=== PATIENT | female | born 1995 | race Caucasian/White ===

== ENCOUNTER 2016-07-31 18:41 | Observation (INO) | payer OTHER ==
--- NOTE | ~2016-07-31 | CR72 ---
[facility] A Service of [facility] & [facility] RADIOLOGY TEXT RESULTS PATIENT: DIPTI ALVARES LOCATION: C2A 242-01 : [birth year] UNIT #: [id number] AGE: [address]: Chandrakant Kothari MD SEX: F ORDER DR: [id number] [facility] [address] [place], [place] [address] [id number] I MR#: [id number] Acc #: [id number] NAME: DIPTI ALVARES. : 1995 SEX: F STUDY DATE/TIME: 07/31/2016 17:37 UNIT: [facility] ROOM: Critical access hospital STUDY DESCRIPTION: CR Chest Single View Portable Attending Physician: Chandrakant Kothari M.D. Ordering Physician: Ismael Morales D.O. MEDICAL IMAGING REPORT This report is preliminary unless electronic signature is present EXAM Portable chest 07/31/2016 HISTORY Left chest pain, dizziness, stomach pain began today. FINDINGS AP radiograph of the chest is presented. No comparisons. Bony structures unremarkable. Heart and mediastinum normal in size and contour. The lungs are well inflated and clear. No pleural effusion or pneumothorax. No suspicious nodule. No indication of acute infectious or inflammatory disease. Dictated by... Chandrakant Mccarthy M.D. THIS IS AN ELECTRONICALLY VERIFIED REPORT Chandrakant Mccarthy M.D. at 08/01/2016 6:04 PM MIKE/rylie TD: 08/01/2016 06:30 JOB #: [id number] MEDICAL IMAGING REPORT Page 1 of 1 COPY
--- NOTE | ~2016-07-31 | US67 ---
[facility] A Service of [facility] & [facility] RADIOLOGY TEXT RESULTS PATIENT: DIPTI ALVARES LOCATION: C2A 24201 : [birth year] UNIT #: [id number] AGE: [address]: Chandrakant Kothari MD SEX: F ORDER DR: [id number] [facility] [address] [place], [place] [address] [id number] I MR#: [id number] Acc #: [id number] NAME: DIPTI ALVARES. : 1995 SEX: F STUDY DATE/TIME: 07/31/2016 18:56 UNIT: [facility] ROOM: [facility] STUDY DESCRIPTION: US Gallbladder Attending Physician: Chandrakant Kothari M.D. Ordering Physician: Ismael Morales D.O. MEDICAL IMAGING REPORT This report is preliminary unless electronic signature is present EXAM Gallbladder ultrasound HISTORY Abdomen pain today. FINDINGS Ultrasound examination of the gallbladder demonstrates borderline to mild gallbladder distension. Small gallstones and small amount of echogenic gallbladder sludge. No gallbladder wall thickening or adjacent pericholecystic fluid. No biliary ductal dilatation. The common bile duct measures 3 mm in diameter. IMPRESSION 1. Borderline to mild gallbladder distension. 2. Small amount of echogenic gallbladder sludge and small gallstones. 3. No biliary ductal dilatation. Dictated by... Jose Maldonado M.D. THIS IS AN ELECTRONICALLY VERIFIED REPORT Jose Maldonado M.D. at 08/01/2016 3:56 PM DFL/bd TD: 08/01/2016 08:00 JOB #: [id number] MEDICAL IMAGING REPORT Page 1 of 1 COPY
--- NOTE | ~2016-07-31 | OR ---
Unit #: [id number] #: [id number] Patient: DIPTI ALVARES [id number] [address] [place], [place] [address] [id number] Kathleen MR#: [id number] NAME: DIPTI ALVARES. ROOM: 242 Date of Procedure: 08/01/2016 Admission Date: 07/31/2016 Surgeon: Salas Mirza III, M.D. : 1995 Attending Physician: Chandrakant Kothari M.D. OPERATIVE REPORT PREOPERATIVE DIAGNOSES Gallstones and biliary colic. POSTOPERATIVE DIAGNOSES Gallstones and biliary colic. PROCEDURE PERFORMED Laparoscopic cholecystectomy. ANESTHESIA General. SPECIMENS Gallbladder to pathology. COMPLICATIONS None apparent. ESTIMATED BLOOD LOSS Minimal. INDICATIONS FOR PROCEDURE This is a 21-year-old lady, who presented with some right upper quadrant pain and nausea. She had elevated white blood count and gallstones seen on ultrasound. She is here today for laparoscopic cholecystectomy. DESCRIPTION OF PROCEDURE After consent was obtained, the patient was brought to the operating room and placed in the supine position. General anesthetic was administered. Her abdomen was prepped and draped in standard surgical fashion. I made a 5-mm incision in the right upper quadrant and used an Optiview to enter into the peritoneal cavity without any difficulty. CO2 pneumoperitoneum was then established. Next, a second 5-mm port was placed in the infraumbilical region and an 11-mm port was placed in the midepigastric region and a third 5-mm port was placed in the right lateral subcostal region. I began by retracting the gallbladder superiorly and laterally. I dissected out the cystic duct and cystic artery and after these were carefully identified, I placed 2 clips proximally and 1 clip distally along both structures and then they were divided. I then took the gallbladder off the liver bed without any spillage of bile. The gallbladder was then extracted through the epigastric port site. I had excellent hemostasis and all needle, sponge, and instrument counts were Unit #: [id number] #: [id number] Patient: DIPTI ALVARES correct x2. I then reapproximated the fascia at the epigastric port site with neoClose device. All the trocars were removed. Pneumoperitoneum was released. The incisions were injected with 0.25% plain Marcaine and I reapproximated the skin edges with interrupted 4-0 Vicryl subcuticular suture. Steri-Strips were then applied. The patient tolerated the procedure without any problems and returned to the recovery room in stable condition. Dictated by... Salas Mirza III, M.D. VCL/meche TD: 08/02/2016 07:43 JOB #: [id number] OPERATIVE REPORT Page 1 of 1 X Salas Mirza III, MD PROCEDURE OPERATIVE NOTE
--- NOTE | ~2016-07-31 | EKG ---
PATIENT: DIPTI ALVARES UNIT #: [id number] Ventricular Rate: 74 BPM Atrial Rate: 74 BPM P-R Interval: 134 ms QRS Duration: 92 ms Q-T Interval: 384 ms QTC Calculation(Bezet): 426 ms P [place]: 80 degrees Calculated R [place]: 79 degrees Calculated T [place]: 49 degrees Diagnosis Line: Normal sinus rhythm with sinus arrhythmia Diagnosis Line: Incomplete right bundle branch block Diagnosis Line: Otherwise normal ECG Diagnosis Line: No previous ECGs available Diagnosis Line: Confirmed by EARNESTINE THORPE MD ([id number]) on 07/31/2016 Diagnosis Line: 11:07:05 PM INTERPRETING MD: MAURILIO COLBERT
--- NOTE | ~2016-07-31 | HP ---
Unit #: [id number] #: [id number] Patient: DIPTI ALVARES [id number] [address] [place], [place] [address] [id number] I MR#: [id number] NAME: DIPTI ALVARES. ROOM: 242 Age: 21 Sex: F Admission Date: 07/31/2016 : 1995 Attending Physician: Chandrakant Kothari M.D. HISTORY AND PHYSICAL Ms. Alvaers is a 21-year-old white female with atypical chest pain, stomach pain radiating into her chest. This has been going off and on for the last few months but got worse so she came to the emergency room. She was noted to have a distended gallbladder with gallstones. It was felt like this was biliary colic. She feels slightly better at this time. SOCIAL HISTORY She has not been recently. She is a nonsmoker, nondrinker. Does work outside the home. ALLERGIES She has had no known allergies. MEDICATIONS She is on control pills. PAST SURGICAL HISTORY She has had no surgical history except for tonsillectomy. REVIEW OF SYSTEMS Negative for respiratory, renal or metabolic disease. She is non-diabetic, nonsmoker. PHYSICAL EXAMINATION GENERAL: Cooperative, alert white female. VITAL SIGNS: Temperature 98 degrees, pulse 80, respirations 16. Blood pressure 123/70. ENT: Clear. There is no overt jaundice. Bilirubin is 1.3 in the emergency room. CHEST: Clear to auscultation and percussion. NECK: Supple. No masses, no tenderness. CARDIAC EXAM: Rhythm is regular, no audible murmurs. ABDOMEN: Soft, nondistended. 1+ tenderness in the right upper quadrant/mid epigastric area. EXTREMITIES: 1 to 2+ peripheral pulses bilaterally. No specific edema. No clubbing or cyanosis. NEUROLOGICAL: Cranial nerves II-XII intact. No gross motor or sensory deficits. Oriented x3. IMPRESSION Biliary colic with cholelithiasis. PLAN The patient will be scheduled for laparoscopic cholecystectomy. Unit #: [id number] #: [id number] Patient: DIPTI ALVARES Risks have been explained to the patient and she understands. Dictated by Kayce Pardo/eduin TD: 08/01/2016 07:36 JOB #: [id number] HISTORY AND PHYSICAL Page 1 of 1 X Tera Alvarez MD HISTORY AND PHYSICAL
[2016-07-31 16:34] LABS: URINE SOURCE CLEAN CATCH
[2016-07-31 16:45] LABS: CULTURE INDICATED? YES; URBCS1 AUWI 0-2 /[HPF] (0-2); URINE APPEARANCE CLEAR; URINE BACTERIA AUWI 2+ (NEGATIVE); URINE BILIRUBIN NEG (NEG); URINE BLOOD NEG (NEG); URINE COLOR YELLOW; URINE GLUCOSE NEG (NEG); URINE KETONE NEG (NEG); URINE LEUKOCYTE ESTERASE 1+ (NEG); URINE NITRATE NEG (NEG); URINE PH 5.5 (5-8); URINE PROTEIN NEG (NEG); URINE SPECIFIC GRAVITY 1.028 (1.003-1.035); URINE SQUAMOUS EPITHELIAL CELL FEW /[HPF]; UWBCS1 AUWI 25-50 (0-5)
[2016-07-31 17:35] LABS: BASOPHIL% 0.3 % (0-2.5); EOSINOPHIL% 0.1 % (0.0-7.0); HEMATOCRIT 42.2 % (35.0-45.0); LYMPHOCYTE# 1.1 X10e3 (1.0-3.5); LYMPHOCYTE% 6.9 % (17.0-45.0); MEAN CORPUSCULAR HEMOGLOBIN 29.6 PG (28-34); MEAN CORPUSCULAR HGB CONC 33.2 g/dL (30-36); MEAN PLATELET VOLUME 8.1 FL (6.5-11.5); MONOCYTE% 6.5 % (3.0-12.0); NEUTROPHIL# 13.1 X10e3 (1.5-7.1); NEUTROPHIL% 86.2 % (40-75); PLATELET COUNT 257 X10e3 (140-420); RED BLOOD COUNT 4.74 X10e (3.90-5.30); RED CELL DISTRIBUTION WIDTH 13.4 % (11.0-15.5); WHITE BLOOD COUNT 15.2 X10e3 (4.0-10.5)
[2016-07-31 17:36] LABS: DIFF IND YES
[2016-07-31 17:52] LABS: POC - CKMB <1.0 ng/mL (0.0-7.9); POC - TROPONIN <0.05 ng/mL (<=0.05)
[2016-07-31 18:07] LABS: PLATELET ESTIMATE NORMAL (NORMAL); RBC NORMAL YES
[2016-07-31 18:13] LABS: ALBUMIN SERUM 4.2 g/dL (3.5-5.0); BILIRUBIN, DIRECT 0.5 mg/dL (0.0-0.2); BILIRUBIN,INDIRECT 0.8 mg/dL (0.0-0.9); BILIRUBIN,TOTAL 1.3 mg/dL (0.2-2.0); CALCIUM SERUM 9.5 mg/dL (8.4-10.2); CREATININE SERUM 0.9 mg/dL (0.6-1.4); GLOM FILT RATE Estimated 92.1 mL/min (>60); PROTEIN TOTAL SERUM 7.6 g/dL (6.0-8.3)
[2016-07-31 20:39] LABS: AMPHETAMINE NEG (NEG); BARBITURATES NEG (NEG); BENZODIAZEPINES NEG (NEG); COCAINE NEG (NEG); MARIJUANA NEG (NEG); OPIATES NEG (NEG); TRICYCLIC ANTIDEPRESSANTS NEG (NEG); U METHADONE NEG (NEG)
[2016-07-31] MEDS ORDERED: MICROGESTIN1 TA1 PO (23:23)
[2016-08-01] MEDS ORDERED: HYDROCODON-ACE1 EAC9 PO (12:49)
== END 2016-08-01 14:38 | disposition home or self-care (01) | DRG 419 ==
LOC: CED 18:41 → CEDOF 20:40 → C2A 22:13
PROVIDERS: Emergency Medicine
PROC: 0FT44ZZ Resection of Gallbladder, Percutaneous Endoscopic Approach (ICD-10-PCS; principal; 2016-07-31)
DX: K80.10 Calculus of gallbladder with chronic cholecystitis without obstruction (principal); R07.89 Other chest pain; Z79.3 Long term (current) use of hormonal contraceptives; Z88.0 Allergy status to penicillin
CPT/HCPCS: 36415; 71010; 76705; 80048; 80076; 80307; 81003; 82150; 82553; 83690; 84484; 84703; 85025; 85379; 87086; 88304; 93005; 96361; 96365; 96372; 96374; 96375; 96376; 99285; G0378; J0330; J0500; J0696; J1610; J1650; J1885; J1956; J2250; J2270; J2405; J2710; J3010